=== PATIENT | male | born 1950 | race Caucasian/White ===

== ENCOUNTER 2016-12-14 22:47 | Emergency (ER) | payer MEDICARE, BC ==
[2016-12-14] MEDS ORDERED: Lidocaine 1% 20 ML MDV INJECT ONE (22:53)
[2016-12-14] MEDS ORDERED: Bacitracin Oint 1 GM U/D Packet TOP ONE (22:53)
--- NOTE | 2016-12-14 22:57 | EDM.PDOC ---
ED HPI Skin/Rash - General Chief Complaint: Laceration Stated Complaint: PT CUT RT ARM Time Seen by Provider: 12/14/16 22:54 - History of Present Illness INITIAL COMMENTS - FREE TEXT/NARRATIVE: HISTORY AND PHYSICAL: History of present illness: Patient is a 66-year-old white male judgments or lacerations reforms occurred when he dropped a power tool striking that area but no other trauma concern is up to date on his tetanus he denies any other complaints Review of systems: As per history of present illness and below otherwise all systems reviewed and negative. Past medical history: As per history of present illness and as reviewed below otherwise noncontributory. Surgical history: As per history of present illness and as reviewed below otherwise noncontributory. Social history: No reported history of drug or alcohol abuse. Family history: As per history of present illness and as reviewed below otherwise noncontributory. Physical exam: HEENT: Atraumatic, normocephalic, pupils reactive, negative for conjunctival pallor or scleral icterus, mucous membranes moist, throat clear, neck supple, nontender, trachea midline. Lungs: Clear to auscultation, breath sounds equal bilaterally, chest nontender. Heart: S1S2, regular, negative for clicks, rubs, or JVD. Abdomen: Soft, nondistended, nontender. Negative for masses or hepatosplenomegaly. Negative for costovertebral tenderness. Pelvis: Stable nontender. Genitourinary: Deferred. Rectal: Deferred. Extremities: Patient has approximately 3 cm moderate laceration to the volar aspect of the mid right forearm CMS and neurovascular are unremarkable with good hemostasis and no tendon involvement Neuro: Awake, alert, oriented. Cranial nerves II through XII unremarkable. Cerebellum unremarkable. Motor and sensory unremarkable throughout. Exam nonfocal. Diagnostics: none Therapeutics: Patient was prepped and draped in sterile manner anesthetized 1% lidocaine closed with 4-0 nylon interrupted sutures dressed with bacitracin Impression: #1 Laceration right forearm Definitive disposition and diagnosis as appropriate pending reevaluation and review of above. - Related Data Allergies Allergy/AdvReac Type Severity Reaction Status Date / Time No Known Allergies Allergy Verified 12/14/16 22:52 Home Meds: Ambulatory Orders Medication Instructions Recorded Confirmed Bimatoprost [LUMIGAN 0.03% Ophth 1 drop EYEBOTH BEDTIME 06/24/14 06/24/14 Soln] Venlafaxine [Effexor XR] 06/24/14 06/24/14 Social & Family History - Tobacco Use Smoking Status *Q: Never Smoker - Alcohol Use Days Per Week of Alcohol Use: 1 Number of Drinks Per Day: 1 Total Drinks Per Week: 1 - Recreational Drug Use Recreational Drug Use: No ED ROS GENERAL - Review of Systems Review Of Systems: ROS reveals no pertinent complaints other than HPI. ED EXAM, SKIN/RASH Exam: See Below (See dictation) Course - Vital Signs Last Recorded V/S: Last Vital Signs Temp 36.4 C 12/14/16 22:52 Pulse 99 12/14/16 22:52 Resp 16 12/14/16 22:52 BP 161/77 H 12/14/16 22:52 Pulse Ox 99 12/14/16 22:52 - Orders/Labs/Meds Meds: Medications Discontinued Medications Generic Name Dose Route Start Last Admin Trade Name Carmineq PRN Reason Stop Dose Admin Bacitracin 1 dose 12/14/16 22:53 Bacitracin Oint 1 Gm TOP 12/14/16 22:54 ONETIME ONE Lidocaine HCl 20 ml 12/14/16 22:53 Xylocaine 1% INJECT 12/14/16 22:54 ONETIME ONE Departure - Departure Time of Disposition: 22:56 Disposition: Home, Self-Care 01 Condition: good Clinical Impression: Laceration Forms: ED Department Discharge Additional Instructions: The following information is given to patients seen in the emergency department who are being discharged to home. This information is to outline your options for follow-up care. We provide all patients seen in our emergency department with a follow-up referral. The need for follow-up, as well as the timing and circumstances, are variable depending upon the specifics of your emergency department visit. If you don't have a primary care physician on staff, we will provide you with a referral. We always advise you to contact your personal physician following an emergency department visit to inform them of the circumstance of the visit and for follow-up with them and/or the need for any referrals to a consulting specialist. The emergency department will also refer you to a specialist when appropriate. This referral assures that you have the opportunity for followup care with a specialist. All of these measure are taken in an effort to provide you with optimal care, which includes your followup. Under all circumstances we always encourage you to contact your private physician who remains a resource for coordinating your care. When calling for followup care, please make the office aware that this follow-up is from your recent emergency room visit. If for any reason you are refused follow-up, please contact the [facility] emergency department at and asked to speak to the emergency department charge nurse. Wound care at change follow up primary medical doctor 24-48hours suture removal 10-14 days return as needed as discussed
[2016-12-14 23:08] VITALS: BP 139/77
== END 2016-12-14 23:09 | disposition home or self-care (01) ==
LOC: MW.ED 22:47
DX: S51.811A Laceration without foreign body of right forearm, initial encounter (principal); W20.8XXA Other cause of strike by thrown, projected or falling object, initial encounter
CPT/HCPCS: 12002; 99282

== ENCOUNTER 2016-12-23 09:56 | Emergency (ER) | payer MEDICARE, BC ==
[2016-12-23 10:02] VITALS: BP 135/71
== END 2016-12-23 10:03 | disposition left against medical advice (07) ==
LOC: MW.ED 09:56
DX: Z53.21 Procedure and treatment not carried out due to patient leaving prior to being seen by health care provider (principal)

== ENCOUNTER 2021-12-02 23:06 | Emergency (ER) | payer MEDICARE, BC ==
[2021-12-02] MEDS: Ondansetron 4 MG/2 ML SDV IVPUSH ONE (23:28)
[2021-12-02] MEDS: Sodium Chloride 0.9% 1,000 ML IV ONE (23:29)
[2021-12-02 23:37] LABS: BLOOD UREA NITROGEN,BUN 26 mg/dL (7.0-18.0); CARBON DIOXIDE,CO2 21.9 mmol/L (21.0-32.0); CHLORIDE,CL 103 mmol/L (98-107); GLUCOSE RANDOM 206 mg/dL (74-106); LIPASE 66 U/L (73-393); POTASSIUM,K 5.1 mmol/L (3.5-5.1); SODIUM,NA 138 mmol/L (136-148)
[2021-12-03] MEDS: Iopamidol 755 MG/ML 500 ML Multipack Bottle IVPUSH STA (00:16)
[2021-12-03 00:28] VITALS: PULSE 88
[2021-12-03 01:26] VITALS: BP 131/67
== END 2021-12-03 01:34 | disposition home or self-care (01) ==
LOC: MW.ED 23:06
DX: R55 Syncope and collapse (principal); E11.9 Type 2 diabetes mellitus without complications; Z20.822 Contact with and (suspected) exposure to COVID-19
CPT/HCPCS: 36415; 70450; 71045; 74177; 80053; 81003; 83690; 84484; 85025; 93005; 96374; 99285; J2405; J7030; Q9967; U0002

== ENCOUNTER 2025-08-04 04:06 | Emergency (ER) | payer BC, MEDICARE ==
[2025-08-04] MEDS ORDERED: Sodium Chloride 0.9% 2.5 ML Syringe FLUSH PRN (04:16)
[2025-08-04] MEDS ORDERED: Sodium Chloride 0.9% 10 ML Syringe FLUSH PRN (04:16)
[2025-08-04] MEDS: Ondansetron 4 MG/2 ML SDV IVPUSH ONE (04:20)
[2025-08-04 04:28] LABS: BASOPHILS ABSOLUTE AUTO 0.08 K/uL (0.00-0.20); BASOPHILS PERCENT AUTO 0.7 % (0.0-1.0); EOSINOPHILS ABSOLUTE AUTO 0.29 K/uL (0.00-0.45); EOSINOPHILS PERCENT AUTO 2.4 % (0.0-6.0); IMMATURE GRAN ABSOLUTE AUTO 0.04 K/uL (0.00-0.05); IMMATURE GRAN PERCENT AUTO 0.3 % (0.0-0.4); LYMPHOCYTES ABSOLUTE AUTO 2.43 K/uL (1.00-4.80); LYMPHOCYTES PERCENT AUTO 20.2 % (24.0-44.0); MEAN PLATELET VOLUME 9.4 fL (9.4-12.4); MONOCYTES ABSOLUTE AUTO 0.76 K/uL (0.00-0.80); MONOCYTES PERCENT AUTO 6.3 % (0.0-8.0); NEUTROPHILS ABSOLUTE AUTO 8.43 K/uL (1.80-7.70); NEUTROPHILS PERCENT AUTO 70.1 % (41.0-71.0); NRBC ABSOLUTE 0.00 K/uL (0.00-0.02); NRBC PERCENT 0.0 /100WBC (0.0-0.2); PLATELET COUNT,PLT 237 K/uL (150-400); RED BLOOD CELL COUNT 4.87 M/uL (4.52-5.90); WHITE BLOOD CELL COUNT,WBC 12.03 K/uL (3.9-11.3)
[2025-08-04 04:43] LABS: INR 1.02 (0.86-1.11); PTT,PARTIAL THROMBOPLSTIN TIME 24.6 SEC (23.9-30.7)
[2025-08-04] MEDS: Iopamidol 755 MG/ML 500 ML Multipack Bottle IVPUSH STA (04:43)
[2025-08-04 04:54] LABS: A/G RATIO 1.2 (0.9-1.6); ALANINE AMINOTRANSFERASE,ALT 30 IU/L (14-63); ASPARTATE AMNIOTRANSFERASE,AST 19 IU/L (15-37); BILIRUBIN TOTAL 0.3 mg/dL (0.2-1.0); BLOOD UREA NITROGEN,BUN 29 mg/dL (7.0-18.0); CARBON DIOXIDE,CO2 24.8 mmol/L (21.0-32.0); CHLORIDE,CL 106 mmol/L (98-107); CHOLESTEROL HDL 65 mg/dL (40-60); CHOLESTEROL LDL CALCULATED 62 mg/dL (60-180); CHOLESTEROL TOTAL 140 mg/dL (50-200); CREATININE 1.3 mg/dL (0.8-1.3); EST CRCL DRUG DOSING (CG) 50.35 mL/min; ETHANOL BLOOD MEDICAL <3 mg/dL; GLUCOSE RANDOM 188 mg/dL (74-106); POTASSIUM,K 4.6 mmol/L (3.5-5.1); PROTEIN TOTAL,TP 7.7 g/dL (6.4-8.2); SODIUM,NA 141 mmol/L (136-148); VLDL CHOLESTEROL 13 mg/dL (5-55)
[2025-08-04 04:55] LABS: ESTIMATED GFR 57 mL/min (>60)
[2025-08-04] MEDS: droPERidol 2.5 MG/ML SDV IVPUSH ONE (05:21)
[2025-08-04 05:41] VITALS: BP 127/72; PULSE 72
== END 2025-08-04 05:53 | disposition home or self-care (01) ==
LOC: MW.ED 04:06
DX: R11.2 Nausea with vomiting, unspecified (principal); R42 Dizziness and giddiness; R03.0 Elevated blood-pressure reading, without diagnosis of hypertension; E78.00 Pure hypercholesterolemia, unspecified; E11.9 Type 2 diabetes mellitus without complications; Z79.899 Other long term (current) drug therapy; Z79.84 Long term (current) use of oral hypoglycemic drugs
CPT/HCPCS: 36415; 70450; 70496; 70498; 80053; 80061; 80307; 82947; 83036; 84484; 85025; 85610; 85730; 93005; 96361; 96374; 96375; 99284; A9270; J1790; J2405; J7030; Q9967; 93010